=== PATIENT | male | born 1935 | race Caucasian/White ===

== ENCOUNTER 2018-11-01 01:33 | Inpatient (IN) | payer MEDICARE, BC, OTHER ==
[~2018-11-01] VITALS: Ht 180.3 cm; Wt 105.2 kg
[2018-11-01] MEDS ORDERED: VERA240T3 PO (01:47)
[2018-11-01] MEDS ORDERED: ALLO10TA PO (01:47)
[2018-11-01] MEDS ORDERED: LOSA50TA88 PO (01:47)
[2018-11-01] MEDS ORDERED: OMEP10CASR PO (01:47)
[2018-11-01 02:01] LABS: ABG BASE EXCESS -6.1 (-2.0-2.0); ABG HCO3 17.3 MEQ/L (22.0-26.0); ABG O2 SATURATION 97.3 % (95.0-99.0); ABG PARTIAL PRESSURE CO2 28.4 mmHg (35.0-45.0); ABG PARTIAL PRESSURE O2 101.7 mmHg (75.0-100.0); ABG STANDARD HCO3 19.5 MEQ/L (22.0-26.0); ABG TOTAL CO2 18.2 MEQ/L (23.0-31.0); ABG pH (ARTERIAL) 7.403 UNITS (7.350-7.450)
[2018-11-01 02:07] LABS: VENOUS BASE EXCESS -4.8 (-2.0-2.0); VENOUS HCO3 20.3 MEQ/L (23.0-27.0); VENOUS O2 SATURATION 87.3 % (60.0-80.0); VENOUS PARTIAL PRESSURE CO2 37.9 mmHg (38.0-50.0); VENOUS PARTIAL PRESSURE O2 58.3 mmHg (30.0-50.0); VENOUS PH 7.347 UNITS (7.330-7.430); VENOUS STANDARD HCO3 20.3 MEQ/L; VENOUS TOTAL CO2 21.5 MEQ/L (24.0-28.0)
[2018-11-01 02:08] LABS: BASO # 0.1 10^3/uL (0.0-0.2); BASO % 0.5 % (0.0-1.0); EOS # 0.1 10^3/uL (0.0-0.50); EOS % 1.5 % (0.0-3.0); HEMATOCRIT 36.6 % (42.0-52.0); HEMOGLOBIN 12.1 g/dl (13.5-17.5); LYMPH # 1.3 10^3/uL (1.5-4.5); LYMPH % 13.4 % (24.0-44.0); MEAN CORPUSCULAR HGB CONC 33.1 g/dl (32.0-36.5); MEAN CORPUSCULAR VOLUME 105.8 fl (80.0-96.0); MONO # 0.6 10^3/uL (0.0-0.8); MONO % 6.6 % (0.0-5.0); NEUTROPHILS # 7.2 10^3/uL (1.8-7.7); NEUTROPHILS % 77.6 % (36.0-66.0); PLATELET COUNT, AUTOMATED 203 10^3/uL (150-450); RED BLOOD COUNT 3.46 10^6/uL (4.30-6.10); WHITE BLOOD COUNT 9.3 10^3/uL (4.0-10.0)
[2018-11-01 02:35] LABS: ALBUMIN 3.8 GM/DL (3.2-5.2); BILIRUBIN,DIRECT 0.3 MG/DL (0.0-0.2); BILIRUBIN,TOTAL 0.6 MG/DL (0.2-1.0); CALCIUM LEVEL 8.5 MG/DL (8.8-10.2); CK-MB VALUE MASS 4.7 NG/ML (<3.6); CREATININE FOR GFR 1.85 MG/DL (0.70-1.30); GLOMERULAR FILTRATION RATE 37.3 (>35); MB/CK RELATIVE INDEX 1.57 (< OR =4); POTASSIUM SERUM 4.4 MEQ/L (3.5-5.1); THYROID STIMULATING HORMONE 4.6 uIU/ML (0.358-3.740); THYROXINE (T4) 8.3 UG/DL (4.5-12.0); TOTAL PROTEIN 6.4 GM/DL (6.4-8.2); TROPONIN I 0.13 NG/ML (< 0.10)
[2018-11-01] MEDS ORDERED: FUROSEMIDE 40 MG/4 ML VIAL (J1940) IV ONE (03:30)
[2018-11-01 04:50] LABS: CK-MB VALUE MASS 4.9 NG/ML (<3.6); MB/CK RELATIVE INDEX 1.64 (< OR =4); TROPONIN I 0.29 NG/ML (< 0.10)
--- NOTE | 2018-11-01 05:38 | REPVR ---
EXAM: CT Chest Without Contrast EXAM DATE/TIME: 11/01/2018 3:39 AM CLINICAL HISTORY: 83 years old, male; Signs and symptoms; Shortness of breath; Additional info: SOB, liver dysfunction, chf TECHNIQUE: Imaging protocol: Axial computed tomography images of the chest without intravenous contrast. Coronal and sagittal reformatted images were created and reviewed. Radiation optimization: All CT scans at this facility use at least one of these dose optimization techniques: automated exposure control; mA and/or kV adjustment per patient size (includes targeted exams where dose is matched to clinical indication); or iterative reconstruction. COMPARISON: CR PORTABLE CHEST X-RAY 11/01/2018 1:59 AM Study limitations: Evaluation of mediastinal and hilar structures, vasculature as well as for inflammatory change or mass is suboptimal on noncontrast imaging. FINDINGS: HEART AND VASCULATURE: There is mild cardiac enlargement. No pericardial effusion. There is some calcification of the mitral valve. A punctate calcification is noted within the left ventricle which could be related to prior infarct. Aortic valve replacement noted. There is coronary artery disease. There is fusiform aneurysmal dilation of the ascending thoracic aorta up to 46.3 mm in diameter. There is thoracic aortic atherosclerosis. The main pulmonary arteries are dilated up to 3.4 cm at the right pulmonary trunk. This could be correlated for mild pulmonary arterial hypertension. MEDIASTINUM: No mediastinal gas. The visualized thyroid gland is within normal limits. No mediastinal hematoma. Moderate amount of simple appearing fluid noted within the pericardial recesses. Small mediastinal lymph nodes are seen. No lymphadenopathy by size criteria. No periesophageal gas or inflammatory stranding. LUNGS: The lungs are symmetric in expansion. Small bilateral pleural effusions are noted, right slightly greater than left. There is no pneumothorax. Bibasal mildly confluent pulmonary opacities are noted, right slightly greater than left which may be secondary to atelectasis. Mild aspiration or pneumonia cannot be excluded. Clinical correlation is advised. Consider radiographic followup for these findings. There is mild interstitial thickening which could be correlated for interstitial edema or interstitial infiltrate. Subpleural reticular opacities noted anteriorly within the right upper lobe, likely secondary to parenchymal scarring. A few scattered subpleural pulmonary lucencies noted at the right lung base which may be secondary to pulmonary parenchymal fibrotic changes and/or emphysema. No suspicious pulmonary parenchymal mass. No bronchiectasis or peribronchial thickening. UPPER ABDOMEN: Please refer to same day CT abdominal report for complete findings. MSK AND BODY WALL: No thoracic body wall edema. There is mild bilateral gynecomastia. No acute fracture. Mild degenerative changes in the thoracic spine and bony thorax noted. IMPRESSION: Cardiac enlargement, atherosclerosis, pleural effusions and interstitial thickening/edema collectively may be correlated for congestive heart failure. 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 Clinical correlation for mild pulmonary arterial hypertension. Bibasal pulmonary opacities may be secondary to compressive atelectasis, any possibility of aspiration or pneumonia to be correlated clinically. Consider radiographic followup for these findings. Other incidental findings discussed above. Electronically signed by: Rajinder Douglas On 11/01/2018 05:37:43 AM
--- NOTE | 2018-11-01 05:52 | REPVR ---
EXAM: CT Abdomen and Pelvis Without Contrast EXAM DATE/TIME: 11/01/2018 3:39 AM CLINICAL HISTORY: 83 years old, male; Signs and symptoms; Other: Liver dysfunction; Additional info: SOB, liver dysfunction, chf TECHNIQUE: Imaging protocol: Axial computed tomography images of the abdomen and pelvis without contrast. Coronal and sagittal reformatted images were created and reviewed. Radiation optimization: All CT scans at this facility use at least one of these dose optimization techniques: automated exposure control; mA and/or kV adjustment per patient size (includes targeted exams where dose is matched to clinical indication); or iterative reconstruction. COMPARISON: No relevant prior studies available. Study limitations: Evaluation for mass, inflammatory change, including bowel wall/fold thickening, viscera, and vasculature, is suboptimal without contrast. Evaluation through the pelvis is partially nondiagnostic, secondary to streak artifact from left hip hardware. FINDINGS: LUNG BASES: Please refer to same day CT chest report for complete findings. VASCULAR: No abdominal aortic aneurysm or retroperitoneal hematoma. Aortoiliac vessel tortuosity could be correlated for long-standing systemic arterial hypertension. Ectasia of the iliac vessels with the left common iliac artery up to 2.4 cm in diameter. PERITONEAL : No free air. Trace amount of free fluid within the pelvis. GI: No hiatal hernia. The stomach contains some ingested material and gas. The stomach is not sufficiently distended to evaluate wall thickening. There is a gas and fluid containing 3.8 cm proximal duodenal diverticulum. No asymmetric small bowel dilation to suggest obstruction. No focal mesenteric inflammatory stranding. Small nonspecific mesenteric lymph nodes are seen. Scattered fecal material and gas in portions of the colon and rectum. There is diverticulosis but no evidence of acute diverticulitis. The appendix does not appear inflamed. HEPATOBILIARY, PANCREAS, SPLEEN: Sagittal hepatic length is 18.5 cm. Evaluation of hepatic parenchyma is limited without IV contrast. There may be mild periportal edema. Clinical correlation with LFTs. This could be seen with vigorous fluid resuscitation, congestive changes or hepatitis. Hepatic attenuation is consistent with mild fatty infiltration. The gallbladder has been removed. There is partial fatty atrophy of the pancreas. No pancreatic inflammation. Spleen not enlarged. ADRENALS, KIDNEYS, BLADDER, RETROPERITONEAL: Slight enlargement of the adrenal glands may be secondary to adenomatous changes or hyperplasia. Nonspecific bilateral perinephric edema. No renal calculi. No hydronephrosis. Evaluation of the urinary bladder is slightly compromised by streak artifact. The urinary bladder appears slightly thickwalled which could be correlated with urinalysis if there is possibility for infection/cystitis. Moderately enlarged prostate impressing along the base of the bladder. Clinical followup is advised. MUSCULOSKELETAL: Mild nonspecific subcutaneous edema at the umbilicus. Small non-inflamed fat containing umbilical hernia. Mild nonspecific lumbar subcutaneous edema. Degenerative changes of the spine and within the pelvis. Grade one approaching grade 2 anterolisthesis of L5 upon S1. Bilateral L5 spondylolysis. Incompletely evaluated left hip replacement. Sclerosis and degenerative changes along the sacroiliac joints. IMPRESSION: Study limitations secondary to lack of any contrast. Hepatic findings and recommendations discussed above. Nonspecific gastrointestinal findings. Trace amount of free fluid within the pelvis. This is of uncertain cause. Other incidental findings discussed above. Electronically signed by: Rajinder Douglas On 11/01/2018 05:52:04 AM
[2018-11-01] MEDS ORDERED: MAALOX 30 ML SUSP *UDC PO PRN (08:30)
[2018-11-01] MEDS ORDERED: MOM 30ML SUSPENSION UDC PO PRN (08:30)
[2018-11-01] MEDS: DOCUSATE SODIUM 100 MG CAP PO SCH ×2 (10:13→20:31)
[2018-11-01] MEDS: ALLOPURINOL 100 MG TAB PO SCH (10:13)
[2018-11-01] MEDS: OMEPRAZOLE 20 MG CAP PO SCH (10:14)
[2018-11-01] MEDS: VERAPAMIL 40 MG TAB PO SCH ×3 (10:15→20:33)
[2018-11-01] MEDS: HEPARIN SOD (PORCINE) 5000 UNITS/ML VIAL SC SCH ×2 (10:19→20:32)
[2018-11-01] MEDS: FUROSEMIDE 100 MG/10 ML VIAL (J1940) IV SCH ×2 (12:13→20:31)
[2018-11-01 12:56] LABS: ALBUMIN 3.4 GM/DL (3.2-5.2); BILIRUBIN,TOTAL 0.6 MG/DL (0.2-1.0); CALCIUM LEVEL 8.5 MG/DL (8.8-10.2); CK-MB VALUE MASS 4.2 NG/ML (<3.6); CREATININE FOR GFR 1.58 MG/DL (0.70-1.30); GLOMERULAR FILTRATION RATE 44.7 (>35); MB/CK RELATIVE INDEX 1.67 (< OR =4); POTASSIUM SERUM 4.3 MEQ/L (3.5-5.1); TOTAL PROTEIN 6.2 GM/DL (6.4-8.2); TROPONIN I 0.35 NG/ML (< 0.10)
[2018-11-01 13:20] VITALS: BP 143/94
--- NOTE | 2018-11-01 15:26 | HPEPDOC ---
General Date of Admission Nov 01, 2018 at 08:28 Date of Service: Nov 01, 2018 Chief Complaint The patient is a 83-year-old male admitted with a reason for visit of Acute Exacerbation Of Chf. Source: Patient, Family, RN/MD Exam Limitations: No limitations Severity: Moderate Associated Symptoms: Shortness of breath, Weakness History of Present Illness 83 year old male with PMH of Hypertension, CHF, CKD, hiatal hernia, gout, obesity who is visiting here normally lives part of the year in [facility] and the winter in [place] has been up here for the past week. He started having increasing Shortness of breath for the past 4 days which really worsened over the past 2 days along with leg swelling. SOB worsened on exertion. Last night he woke up from sleep wheezing then he could not catch his breath, sitting up did not relieve it, was unable to lay down so came to the Ed via EMS. Ems found him to be hypoxic at home in low 80s. On my interview he complained of SOB worse on exertion, along with orthopnea and PND. He was also wheezing at home which is now better. denied any cough or phlegm, denied any chest pain. He was found to have CHF exacerbation and admitted to the hospitalist service. Home Medications Scheduled Allopurinol (Allopurinol) 100 Mg Tablet, 100 MG PO DAILY, (Reported) Losartan Potassium (Losartan Potassium) 50 Mg Tablet, 50 MG PO DAILY, (Reported) Omeprazole (Omeprazole) 10 Mg Capsule.dr, 20 MG PO DAILY, (Reported) Verapamil Hcl (Verapamil ER) 240 Mg Tablet.er, 240 MG PO DAILY, (Reported) Allergies Coded Allergies: No Known Drug Allergies (Verified Allergy, Mild, 11/01/18) Past Medical History Medical History Hypertension, CHF, CKD, obesity, hiatal hernia, gout Surgical History cholecystectomy, ERCP, Left hip replacement Family History Significant Family History: No pertinent family hx Social History * Smoker: former Smoker Alcohol: occationally Drugs: denies A-FIB/CHADSVASC A-FIB History Current/History of A-Fib/PAF?: No Review of Systems Constitutional: Denies: Chills, Fever, Night Sweats Eyes: Denies: Pain, Vision change ENT: Denies: Head Aches, Ear Pain, Dysphagia Skin: Denies: Rash, Lesions, Breakdown Pulmonary: Reports: Dyspnea Cardiovascular: Reports: Orthopnea, Paroxysmal Noc. Dyspnea, Edema Gastrointestinal: Denies: Nausea, Vomiting, Abdominal Pain, Diarrhea Genitourinary: Denies: Dysuria, Frequency, Incontinence, Retention Hematologic: Denies: Bruising, Bleeding Excessively Musculoskeletal: Reports: Joint Pain; Denies: Neck Pain, Back Pain Neurological: Denies: Weakness, Numbness, Change in speech, Confusion Physical Examination General Exam: Positive: Alert, Cooperative, Mild Distress Eye Exam: Positive: PERRLA, Conjunctiva & lids normal, EOMI; Negative: Sclera icteric ENT Exam: Positive: Atraumatic, Mucous membr. moist/pink, Pharynx Normal Neck Exam: Positive: Supple, JVD; Negative: thyromegaly Chest Exam: Positive: Normal air movement, Rales (few at the bases), Diminished Heart Exam: Positive: Rate Normal, Regular Rhythm, Normal S1, Normal S2, Murmurs (soft systolic murmur); Negative: Rubs Telemetry: Positive: No significant arrhythmia Abdomen Exam: Positive: Normal bowel sounds, Soft; Negative: Tenderness, Hepatospenomegaly Extremity Exam: Positive: Edema Skin Exam: Positive: Nl turgor and temperature; Negative: Breakdown, Lesion Neuro Exam: Positive: Normal Speech, Strength at 5/5 X4 ext, Normal Tone Vital Signs Vital Signs Date Time Temp Pulse Resp B/P (MAP) Pulse Ox O2 Delivery O2 Flow Rate FiO2 11/01/18 11:30 76 119/62 (81) 94 11/01/18 10:30 Nasal Cannula 3.0 11/01/18 09:30 19 11/01/18 01:42 96.7 Laboratory Data Labs 24H Laboratory Tests 2 11/01/18 01:46: Immature Granulocyte % (Auto) 0.4, White Blood Count 9.3, Red Blood Count 3.46L, Hemoglobin 12.1L, Hematocrit 36.6L, Mean Corpuscular Volume 105.8H, Mean Corpuscular Hemoglobin 35.0H, Mean Corpuscular Hemoglobin Concent 33.1, Red Cell Distribution Width 14.6H, Platelet Count 203, Neutrophils (%) (Auto) 77.6H, Lymphocytes (%) (Auto) 13.4L, Monocytes (%) (Auto) 6.6H, Eosinophils (%) (Auto) 1.5, Basophils (%) (Auto) 0.5, Neutrophils # (Auto) 7.2, Lymphocytes # (Auto) 1.3L, Monocytes # (Auto) 0.6, Eosinophils # (Auto) 0.1, Basophils # (Auto) 0.1, Nucleated Red Blood Cells % (auto) 0.0, Blood Gas Bicarbonate Standard 19.5L, Arterial Blood pH 7.403, Arterial Blood Partial Pressure CO2 28.4L, Arterial Blood Partial Pressure O2 101.7H, Arterial Blood Total CO2 18.2L, Arterial Blood HCO3 17.3L, Arterial Blood Base Excess -6.1L, Arterial Blood Oxygen Saturation 97.3, Venous Blood pH 7.347, Venous Blood Partial Pressure CO2 37.9L, Venous Blood Partial Pressure O2 58.3H, Venous Blood Total Carbon Dioxide 21.5L, Venous Blood HCO3 20.3L, Venous Blood Oxygen Saturation 87.3H, Venous Blood Base Excess -4.8L, Anion Gap 11, Glomerular Filtration Rate 37.3, Lactic Acid Level 2.6*H, Calcium Level 8.5L, Aspartate Amino Transf (AST/SGOT) 184H, Alanine Aminotransferase (ALT/SGPT) 226H, Alkaline Phosphatase 161H, Total Bilirubin 0.6, Direct Bilirubin 0.3H, Total Creatine Kinase 299, Creatine Kinase MB 4.7H, Creatine Kinase MB Relative Index 1.57, Troponin I 0.13H, HH-Hlj-W-Type Natriuretic Peptide 5260H, Total Protein 6.4, Albumin 3.8, Albumin/Globulin Ratio 1.46, Thyroid Stimulating Hormone (TSH) 4.600H, Thyroxine (T4) 8.3 11/01/18 04:23: Total Creatine Kinase 299, Creatine Kinase MB 4.9H, Creatine Kinase MB Relative Index 1.64, Troponin I 0.29#H 11/01/18 06:17: Lactic Acid Followup at 4 Hours 2.0 CBC/BMP Laboratory Tests 11/01/18 01:46 Red Blood Count 3.46 L, Mean Corpuscular Volume 105.8 H, Mean Corpuscular Hemoglobin 35.0 H, Mean Corpuscular Hemoglobin Concent 33.1, Red Cell Distribution Width 14.6 H, Neutrophils (%) (Auto) 77.6 H, Lymphocytes (%) (Auto) 13.4 L, Monocytes (%) (Auto) 6.6 H, Eosinophils (%) (Auto) 1.5, Basophils (%) (Auto) 0.5, Neutrophils # (Auto) 7.2, Lymphocytes # (Auto) 1.3 L, Monocytes # (Auto) 0.6, Eosinophils # (Auto) 0.1, Basophils # (Auto) 0.1 Microbiology Microbiology 11/01/18 Blood Culture, Received Pending 11/01/18 Blood Culture, Received Pending Assessment/Plan 83 year old male with PMH of Hypertension, CHF, CKD, hiatal hernia, gout, obesity who is visiting here normally lives part of the year in [facility] and the winter in [place] has been up here for the past week. He started having increasing Shortness of breath for the past 4 days which really worsened over the past 2 days along with leg swelling. SOB worsened on exertion. Last night he woke up from sleep wheezing then he could not catch his breath, sitting up did not relieve it, was unable to lay down so came to the Ed via EMS. Ems found him to be hypoxic at home in low 80s. On my interview he complained of SOB worse on exertion, along with orthopnea and PND. He was also wheezing at home which is now better. denied any cough or phlegm, denied any chest pain. He was found to have CHF exacerbation and admitted to the hospitalist service. Acute respiratory failure with hypoxia due to CHF exacerbation improving after diuresis. CHF exacerbation echo. patient has recently seen a refrigerator assembler in [place] referred to by his PMD and had an echo done but has not heard anything back from them. will try to get records. will start on IV lasix 80 mg q 8 fluid restriction, I/O , daily weight. Patient was recently seen also by a wax coating machine tender about a week ago and then his Bp medication valsartan/HCTZ was changed to losartan only this may have caused the fluid retention and precipitation of CHF. Congestive hepatopathy with fatty liver congestion is due to CHF. improving with diuresis. CKD stage 3 with mild KRISTOFER possibly cardiorenal now worse due to CHF exacerbation creatinine improving with diuresis. he was recently told about a week ago that he had CKD CT abdomen an pelvis does not show any obstructive uropathy Prostate enlargement in CT scan will do bladder scan for post void residual. Hypertension Bp controlled at present will hold ACEI and ARBs will continue verapamil with hold parameters will continue with lasix. Gout continue allopurinol Plan / VTE VTE Prophylaxis Ordered?: Yes FERNY TURNER MD Nov 01, 2018 12:05
[2018-11-01] MEDS ORDERED: SLF 3 ML SYR IV PRN (15:45)
[2018-11-01 16:00] VITALS: BP 136/66
--- NOTE | 2018-11-01 18:55 | ECGEPIP ---
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
[2018-11-01 20:00] VITALS: BP 141/69
[2018-11-01] MEDS: SLF 3 ML SYR IV SCH (22:26)
[2018-11-01 23:59] VITALS: BP 122/62
[2018-11-02] MEDS: FUROSEMIDE 100 MG/10 ML VIAL (J1940) IV SCH (03:39)
[2018-11-02 04:00] VITALS: BP 101/62
[2018-11-02] MEDS: SLF 3 ML SYR IV SCH ×3 (06:00→19:59)
[2018-11-02 07:16] LABS: BASO % 0.5 % (0.0-1.0); EOS # 0.2 10^3/uL (0.0-0.50); EOS % 2.9 % (0.0-3.0); HEMATOCRIT 36.8 % (42.0-52.0); HEMOGLOBIN 12.3 g/dl (13.5-17.5); LYMPH # 2.1 10^3/uL (1.5-4.5); LYMPH % 26.9 % (24.0-44.0); MEAN CORPUSCULAR HEMOGLOBIN 34.8 pg (27.0-33.0); MEAN CORPUSCULAR HGB CONC 33.4 g/dl (32.0-36.5); MEAN CORPUSCULAR VOLUME 104.2 fl (80.0-96.0); MONO # 0.6 10^3/uL (0.0-0.8); MONO % 7.6 % (0.0-5.0); NEUTROPHILS # 4.7 10^3/uL (1.8-7.7); NEUTROPHILS % 61.8 % (36.0-66.0); PLATELET COUNT, AUTOMATED 169 10^3/uL (150-450); RED BLOOD COUNT 3.53 10^6/uL (4.30-6.10); WHITE BLOOD COUNT 7.6 10^3/uL (4.0-10.0)
[2018-11-02 07:35] LABS: CALCIUM LEVEL 8.9 MG/DL (8.8-10.2); CREATININE FOR GFR 1.8 MG/DL (0.70-1.30); GLOMERULAR FILTRATION RATE 38.5 (>35); POTASSIUM SERUM 3.7 MEQ/L (3.5-5.1)
--- NOTE | 2018-11-02 07:38 | REP ---
CHEST, PORTABLE: AP portable view of the chest is performed. There is mild cardiomegaly. There appears to be mild vascular congestion and interstitial edema. There is calcification of the thoracic aorta. The mediastinal silhouette is otherwise unremarkable. There are degenerative changes of the spine. IMPRESSION: Mild cardiomegaly. Mild vascular congestion with probably mild interstitial edema, although underlying interstitial fibrosis cannot be excluded. Electronically Signed by Jamarcus Gonzalez MD 11/02/2018 08:34 A
[2018-11-02 07:48] VITALS: BP 121/77
--- NOTE | 2018-11-02 08:39 | IPNPDOC ---
Subjective Date Seen The patient was seen on 11/02/18. Subjective Chief Complaint/HPI Feeling much better today. Denied any SOB at rest. Has not yet gone for a walk out side the room. Has been able to lay down almost flat last night. No wheezing. No chest pain. No nausea or or vomiting. No difficulty in voiding. Objective Physical Examination General Exam: Positive: Alert, Cooperative, Mild Distress Eye Exam: Positive: PERRLA, Conjunctiva & lids normal, EOMI; Negative: Sclera icteric ENT Exam: Positive: Atraumatic, Mucous membr. moist/pink, Pharynx Normal Neck Exam: Positive: Supple, JVD; Negative: thyromegaly Chest Exam: Positive: Normal air movement, Rales (few at the bases), Diminished Heart Exam: Positive: Rate Normal, Regular Rhythm, Normal S1, Normal S2, Murmurs (soft systolic murmur); Negative: Rubs Telemetry: Positive: No significant arrhythmia Abdomen Exam: Positive: Normal bowel sounds, Soft; Negative: Tenderness, Hepatospenomegaly Extremity Exam: Positive: Edema Skin Exam: Positive: Nl turgor and temperature; Negative: Breakdown, Lesion Neuro Exam: Positive: Normal Speech, Strength at 5/5 X4 ext, Normal Tone Assessment /Plan Assessment 83 year old male with PMH of Hypertension, CHF, CKD, hiatal hernia, gout, obesity who is visiting here normally lives part of the year in [facility] and the winter in [place] has been up here for the past week. He started having increasing Shortness of breath for the past 4 days which really worsened over the past 2 days along with leg swelling. SOB worsened on exertion. Last night he woke up from sleep wheezing then he could not catch his breath, sitting up did not relieve it, was unable to lay down so came to the Ed via EMS. Ems found him to be hypoxic at home in low 80s. On my interview he complained of SOB worse on exertion, along with orthopnea and PND. He was also wheezing at home which is now better. denied any cough or phlegm, denied any chest pain. He was found to have CHF exacerbation and admitted to the hospitalist service. Acute respiratory failure with hypoxia due to CHF exacerbation improved after diuresis. Now off oxygen. CHF exacerbation echo. patient has recently seen a home health provider in [place] referred to by his PMD and had an echo done but has not heard anything back from them. will try to get records. will reduce lasix dosage today. I/o negative > 7L in last 24 hours. WIll hold lasix today. fluid restriction, I/O , daily weight. Patient was recently seen also by a auction block clerk about a week ago and then his Bp medication valsartan/HCTZ was changed to losartan only this may have caused the fluid retention and precipitation of CHF. Congestive hepatopathy with fatty liver congestion is due to CHF. improving with diuresis. However will get hepatitis panel to rule out any other infection. CKD stage 3 with mild KRISTOFER possibly cardiorenal now worse due to CHF exacerbation he was recently told about a week ago that he had CKD CT abdomen an pelvis does not show any obstructive uropathy Prostate enlargement in CT scan will do bladder scan for post void residual. Hypertension Bp controlled at present will hold ACEI and ARBs will continue verapamil with hold parameters will continue with lasix. Gout continue allopurinol Plan/VTE VTE Prophylaxis Ordered?: Yes VS, I&O, 24H, [facility] Vital Signs/I&O Vital Signs Date Time Temp Pulse Resp B/P (MAP) Pulse Ox O2 Delivery O2 Flow Rate FiO2 11/02/18 07:48 97.2 89 18 121/77 (92) 95 11/01/18 13:48 2.0 11/01/18 13:23 Nasal Cannula I&O- Last 24 Hours up to 6 AM 11/02/18 06:00 Intake Total 390 ml Output Total 7410 ml Balance -7020 ml Laboratory Data 24H LABS Laboratory Tests 2 11/01/18 12:11: Anion Gap 6L, Glomerular Filtration Rate 44.7, Blood Urea Nitrogen 37H, Creatinine 1.58H, Sodium Level 144, Potassium Level 4.3, Chloride Level 113H, Carbon Dioxide Level 25, Calcium Level 8.5L, Aspartate Amino Transf (AST/SGOT) 109H, Alanine Aminotransferase (ALT/SGPT) 198H, Total Creatine Kinase 251, Alkaline Phosphatase 143H, Total Bilirubin 0.6, Total Protein 6.2L, Albumin 3.4, Creatine Kinase MB 4.2H, Creatine Kinase MB Relative Index 1.67, Troponin I 0.35#H, Albumin/Globulin Ratio 1.21 11/02/18 06:57: Anion Gap 7L, Glomerular Filtration Rate 38.5, Blood Urea Nitrogen 36H, Creatinine 1.80H, Sodium Level 142, Potassium Level 3.7, Chloride Level 104, Carbon Dioxide Level 31, Calcium Level 8.9, Immature Granulocyte % (Auto) 0.3, White Blood Count 7.6, Red Blood Count 3.53L, Hemoglobin 12.3L, Hematocrit 36.8L, Mean Corpuscular Volume 104.2H, Mean Corpuscular Hemoglobin 34.8H, Mean Corpuscular Hemoglobin Concent 33.4, Red Cell Distribution Width 14.5, Platelet Count 169, Neutrophils (%) (Auto) 61.8, Lymphocytes (%) (Auto) 26.9, Monocytes (%) (Auto) 7.6H, Eosinophils (%) (Auto) 2.9, Basophils (%) (Auto) 0.5, Neutrophils # (Auto) 4.7, Lymphocytes # (Auto) 2.1, Monocytes # (Auto) 0.6, Eosinophils # (Auto) 0.2, Basophils # (Auto) 0.0, Nucleated Red Blood Cells % (auto) 0.0 11/02/18 08:15: CBC/BMP Laboratory Tests 11/01/18 12:11 Calcium Level 8.5 L, Aspartate Amino Transf (AST/SGOT) 109 H, Alanine Aminotransferase (ALT/SGPT) 198 H, Total Creatine Kinase 251, Alkaline Phosphatase 143 H, Total Bilirubin 0.6, Total Protein 6.2 L, Albumin 3.4 11/02/18 06:57 Calcium Level 8.9, Red Blood Count 3.53 L, Mean Corpuscular Volume 104.2 H, Mean Corpuscular Hemoglobin 34.8 H, Mean Corpuscular Hemoglobin Concent 33.4, Red Cell Distribution Width 14.5, Neutrophils (%) (Auto) 61.8, Lymphocytes (%) (Auto) 26.9, Monocytes (%) (Auto) 7.6 H, Eosinophils (%) (Auto) 2.9, Basophils (%) (Auto) 0.5, Neutrophils # (Auto) 4.7, Lymphocytes # (Auto) 2.1, Monocytes # (Auto) 0.6, Eosinophils # (Auto) 0.2, Basophils # (Auto) 0.0 Microbiology Microbiology 11/01/18 Blood Culture - Preliminary, Resulted No growth after 24 hours . All specim... 11/01/18 Blood Culture - Preliminary, Resulted No growth after 24 hours . All specim... FERNY TURNER MD Nov 02, 2018 08:39
[2018-11-02] MEDS: ALLOPURINOL 100 MG TAB PO SCH (08:58)
[2018-11-02] MEDS: VERAPAMIL 40 MG TAB PO SCH ×3 (08:58→19:56)
[2018-11-02] MEDS: OMEPRAZOLE 20 MG CAP PO SCH (08:58)
[2018-11-02] MEDS: DOCUSATE SODIUM 100 MG CAP PO SCH ×2 (08:58→19:59)
[2018-11-02] MEDS: HEPARIN SOD (PORCINE) 5000 UNITS/ML VIAL SC SCH ×2 (08:59→19:59)
[2018-11-02] MEDS ORDERED: FUROSEMIDE 100 MG/10 ML VIAL (J1940) IV SCH (09:00)
[2018-11-02 09:22] LABS: ALBUMIN 4.1 GM/DL (3.2-5.2); ALT/SGPT 184 U/L (12-78); BILIRUBIN,DIRECT 0.4 MG/DL (0.0-0.2); BILIRUBIN,TOTAL 1.4 MG/DL (0.2-1.0); HEPATITIS B SURFACE ANTIGEN NEGATIVE (NEGATIVE); TOTAL PROTEIN 7.2 GM/DL (6.4-8.2)
[2018-11-02 09:44] LABS: HEPATITIS B CORE ANTIBODY IGM NEGATIVE (NEGATIVE); HEPATITIS C VIRUS ABY INDEX < 0.0 INDEX (<0.8)
[2018-11-02 09:46] LABS: HEPATITIS A ANTIBODY IGM NEGATIVE (NEGATIVE)
[2018-11-02 11:57] VITALS: BP 132/63
[2018-11-02 15:59] VITALS: BP 127/74
[2018-11-02 20:00] VITALS: BP 129/79
--- NOTE | 2018-11-02 20:57 | ECHO ---
DATE OF PROCEDURE: 11/02/2018 REFERRING PHYSICIAN: Dr. Ame Jasso INDICATION: Congestive heart failure. Height 180 cm, weight 114 kg. DIMENSIONS: IVS: 1.1 LV: 6.5 LVPW: 1.2 LA: 5.2 Aorta: 3.5 IVC: 2.7 Left atrial volume index: 42 Mitral E wave velocity: 112 A wave: 56 E prime septal: 7.4 E prime lateral: 9.9 FINDINGS: The study is of acceptable technical quality. The patient is in sinus rhythm with frequent ectopy. Left ventricle is moderately dilated and globally severely hypokinetic. I estimate left ventricular ejection fraction (LVEF) around 25-30%. Right ventricle was poorly visualized but appears at least mildly dilated. Left atrium is severely enlarged (left atrial volume index was 42 mL per meter square). Right atrium also appears enlarged. Aortic valve is heavily calcified. It is tricuspid and there is severe restriction of cusp mobility. By 2D imaging, I assume severe aortic stenosis. There are degenerative abnormalities of mitral valve with prominent thickening of mitral leaflets and mitral annular calcifications. No prolapse is seen. Tricuspid and pulmonic valves were poorly visualized but grossly appear normal. No pericardial effusion is noted. Inferior vena cava is markedly dilated, and there is minimal collapse with respiration indicative of very high central venous pressure. Aortic root is normal. Aortic arch and abdominal aorta were not seen. Doppler interrogation of aortic valve reveals mild insufficiency and probably severe stenosis, mean gradient across the valve is only 18 mmHg with peak gradient 30, but calculated aortic valve area is approximately 1.0 cm squared. There is likely severe mitral insufficiency, by PISA technique. Calculated ERO 0.5 cm squared. There is moderate tricuspid insufficiency. Calculated pulmonary artery pressure is around 70 mmHg corresponding to severe pulmonary hypertension. Evaluation of diastolic function reveals at least grade 2 diastolic dysfunction. CONCLUSIONS: 1. Study is of acceptable technical quality. 2. Dilated globally hypokinetic left ventricle with estimated LVEF around 25-30%. At least grade 2 diastolic dysfunction. 3. Heavily calcified aortic valve with mild insufficiency and probably severe aortic stenosis in spite of low gradient (mean 18, peak 30 mmHg). 4. 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 5. Very high central venous pressure and at least moderately severe or severe pulmonary hypertension. COMMENT: Subacute bacterial endocarditis (SBE) prophylaxis is not recommended. Provided the patient is a candidate, then he should be considered for right and left cardiac catheterization with view of potential interventions on aortic and possibly even mitral valves.
[2018-11-02 22:00] VITALS: BP 139/90
[2018-11-03] MEDS: SLF 3 ML SYR IV SCH ×2 (05:42→08:57)
[2018-11-03 06:00] VITALS: BP 103/65
[2018-11-03 06:50] LABS: BASO # 0.1 10^3/uL (0.0-0.2); BASO % 0.6 % (0.0-1.0); EOS # 0.2 10^3/uL (0.0-0.50); EOS % 2.7 % (0.0-3.0); HEMATOCRIT 36.2 % (42.0-52.0); HEMOGLOBIN 12.3 g/dl (13.5-17.5); LYMPH # 2.1 10^3/uL (1.5-4.5); MEAN CORPUSCULAR HEMOGLOBIN 34.8 pg (27.0-33.0); MEAN CORPUSCULAR VOLUME 102.5 fl (80.0-96.0); MONO # 0.7 10^3/uL (0.0-0.8); MONO % 8.5 % (0.0-5.0); NEUTROPHILS # 5.3 10^3/uL (1.8-7.7); NEUTROPHILS % 62.8 % (36.0-66.0); PLATELET COUNT, AUTOMATED 183 10^3/uL (150-450); RED BLOOD COUNT 3.53 10^6/uL (4.30-6.10); WHITE BLOOD COUNT 8.4 10^3/uL (4.0-10.0)
[2018-11-03 07:17] LABS: CREATININE FOR GFR 1.53 MG/DL (0.70-1.30); GLOMERULAR FILTRATION RATE 46.4 (>35); POTASSIUM SERUM 3.9 MEQ/L (3.5-5.1)
[2018-11-03] MEDS: VERAPAMIL 40 MG TAB PO SCH (08:47)
[2018-11-03] MEDS: HEPARIN SOD (PORCINE) 5000 UNITS/ML VIAL SC SCH (08:56)
[2018-11-03] MEDS: DOCUSATE SODIUM 100 MG CAP PO SCH (08:56)
[2018-11-03] MEDS: OMEPRAZOLE 20 MG CAP PO SCH (08:56)
[2018-11-03] MEDS: ALLOPURINOL 100 MG TAB PO SCH (08:56)
[2018-11-03] MEDS ORDERED: METOPROLOL TART 25 MG TABLET PO SCH (12:00)
[2018-11-03] MEDS ORDERED: VERA120C PO (12:13)
[2018-11-03] MEDS ORDERED: FURO40TA2 PO (12:13)
[2018-11-03 13:29] LABS: CK-MB VALUE MASS 1.7 NG/ML (<3.6); MB/CK RELATIVE INDEX 1.06 (< OR =4); TROPONIN I 0.12 NG/ML (< 0.10)
[2018-11-03 13:47] VITALS: BP 142/60
[2018-11-03 14:00] VITALS: BP 142/60
[2018-11-03] MEDS ORDERED: METO25TA4 PO (14:09)
--- NOTE | 2018-11-03 16:22 | DS.PDOC ---
Discharge Summary General Date of Admission Nov 01, 2018 at 08:28 Date of Discharge 11/03/2018 Discharge Summary PROCEDURES PERFORMED DURING STAY: [None]. ADMITTING DIAGNOSES / DISCHARGE DIAGNOSES: Acute respiratory failure with hypoxia - likely 2/2 systolic and diastolic congestive heart failure New onset atrial fibrillation Elevated liver enzymes - possibly 2/2 congestive heart failure CKD3 Prostate enlargement in CT scan Hypertension Gout DVT prophylaxis COMPLICATIONS/CHIEF COMPLAINT: Shortness of breath HISTORY OF PRESENT ILLNESS: Patient is an 83 year old male with a PMHx of HTN, Diastolic / Systolic CHF, CKD3, Hiatal hernia, Gout and Obesity who presented to the ER with shortness of breath and weakness. Emergency room, patient was found to have signs of fluid overload. Imaging via chest x-ray and CT chest were consistent with cardiac enlargement atherosclerosis pleural effusions and interstitial thickening/edema, actively may be correlated for congestive heart failure. 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 Patient was admitted to hospitalist service for further evaluation and treatment. HOSPITAL COURSE: Acute respiratory failure with hypoxia - likely 2/2 systolic and diastolic congestive heart failure - Clinically improving, no complaints of SOB, CP, palpitations - Physical without any signs of fluid overload - Echocardiogram did reveal ejection fraction of 25-30%, G2DD, severe aortic stenosis, aortic insufficiency suspected to be from ischemia - Patient had extensive diuresis - Discussed case with cardiology at [facility]; it has been except that on transfer for cardiac catheterization and possible aortic valve replacement New onset atrial fibrillation - EKG reviewed does reveals atrial fibrillation - As an outpatient patient was on verapamil; this has been transitioned to Metoprolol - Currently not on full anticoagulation - Will hold off on full anticoagulation given transfer for cardiac catheterization / possible AV replacement procedure - Risks and benefits have been discussed with the patient; patient has verbalized understanding Elevated liver enzymes - possibly 2/2 congestive heart failure - Liver enzyme improving - Hepatitis panel negative CKD3 - No baseline Cr available for comparison Prostate enlargement in CT scan - Currently does not experience any urinary retention symptoms Hypertension - Blood pressure appears to be well controlled currently; does appear to be on the lower side of normal - Will DC Verapamil and start Metoprolol tartrate 25mg PO q6h - Has been discontinued from JUDI/ARB /HCTZ given intolerance (low blood pressure) Gout - c/w allopurinol DVT prophylaxis - c/w Heparin DISCHARGE MEDICATIONS: Please see below. ALLERGIES: Please see below. PHYSICAL EXAMINATION ON DISCHARGE: Vitals (See below) General: Lying in bed, no acute distress, comfortable, AAOx3 HEENT: NC, AT CVS: +S1S2 Lungs: Fair air entry bilaterally without evidence of rhonchi, rales or wheezing Abdomen: Soft, ND, NT Extremities: There is currently no appreciable edema of his lower extremities, - Calf tenderness LABORATORY DATA: Please see below. IMAGING: - CXR 11/01: Mild cardiomegaly. Mild vascular congestion with probably mild interstitial edema, although underlying interstitial fibrosis cannot be excluded. - CT chest 11/01: Cardiac enlargement, atherosclerosis, pleural effusions and interstitial thickening/edema collectively may be correlated for congestive heart failure. 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 Clinical correlation for mild pulmonary arterial hypertension. Bibasal pulmonary opacities may be secondary to compressive atelectasis, any possibility of aspiration or pneumonia to be correlated clinically. Consider radiographic followup for these findings. Other incidental findings discussed above. - CT abdomen / pelvis 11/01: Study limitations secondary to lack of any contrast. Hepatic findings and recommendations discussed above. Nonspecific gastrointestinal findings. Trace amount of free fluid within the pelvis. This is of uncertain cause. Other incidental findings discussed above. PROGNOSIS: Fair ACTIVITY: [As tolerated]. DIET: Fluid restriction of 1800 cc DISCHARGE PLAN: Transfer to [facility] for cardiac intervention Remain compliant with treatment plan and medications Return to the ER if you experience any problems DISPOSITION: Transfer to [facility] DISCHARGE CONDITION: [Stable]. TIME SPENT ON DISCHARGE: 45 minutes Vital Signs/I&Os Vital Signs Date Time Temp Pulse Resp B/P (MAP) Pulse Ox O2 Delivery O2 Flow Rate FiO2 11/03/18 14:00 96.6 80 20 142/60 (87) 100 11/01/18 13:48 2.0 11/01/18 13:23 Nasal Cannula I&O- Last 24 Hours up to 6 AM 11/03/18 06:00 Intake Total 1080 ml Output Total 2375 ml Balance -1295 ml Laboratory Data Labs 24H Laboratory Tests 2 11/03/18 06:01: Immature Granulocyte % (Auto) 0.4, White Blood Count 8.4, Red Blood Count 3.53L, Hemoglobin 12.3L, Hematocrit 36.2L, Mean Corpuscular Volume 102.5H, Mean Corpuscular Hemoglobin 34.8H, Mean Corpuscular Hemoglobin Concent 34.0, Red Cell Distribution Width 14.2, Platelet Count 183, Neutrophils (%) (Auto) 62.8, Lymphocytes (%) (Auto) 25.0, Monocytes (%) (Auto) 8.5H, Eosinophils (%) (Auto) 2.7, Basophils (%) (Auto) 0.6, Neutrophils # (Auto) 5.3, Lymphocytes # (Auto) 2.1, Monocytes # (Auto) 0.7, Eosinophils # (Auto) 0.2, Basophils # (Auto) 0.1, Nucleated Red Blood Cells % (auto) 0.0, Anion Gap 5L, Glomerular Filtration Rate 46.4, Blood Urea Nitrogen 36H, Creatinine 1.53H, Sodium Level 143, Potassium Level 3.9, Chloride Level 105, Carbon Dioxide Level 33H, Calcium Level 9.0, Total Creatine Kinase 161, Magnesium Level 2.0, Creatine Kinase MB 1.7, Creatine Kinase MB Relative Index 1.06, Troponin I 0.12#H CBC/BMP Laboratory Tests 11/03/18 06:01 Red Blood Count 3.53 L, Mean Corpuscular Volume 102.5 H, Mean Corpuscular Hemoglobin 34.8 H, Mean Corpuscular Hemoglobin Concent 34.0, Red Cell Distribution Width 14.2, Neutrophils (%) (Auto) 62.8, Lymphocytes (%) (Auto) 25.0, Monocytes (%) (Auto) 8.5 H, Eosinophils (%) (Auto) 2.7, Basophils (%) (Auto) 0.6, Neutrophils # (Auto) 5.3, Lymphocytes # (Auto) 2.1, Monocytes # (Auto) 0.7, Eosinophils # (Auto) 0.2, Basophils # (Auto) 0.1, Calcium Level 9.0, Total Creatine Kinase 161 Microbiology Microbiology 11/01/18 Blood Culture - Preliminary, Resulted No Growth after 48 hours. All Specime... 11/01/18 Blood Culture - Preliminary, Resulted No Growth after 48 hours. All Specime... Discharge Medications Scheduled Allopurinol (Allopurinol) 100 Mg Tablet, 100 MG PO DAILY, (Reported) Furosemide (Furosemide) 40 Mg Tablet, 1 TAB PO DAILY Metoprolol Tartrate (Metoprolol Tartrate) 25 Mg Tablet, 1 TAB PO Q6H Omeprazole (Omeprazole) 10 Mg Capsule.dr, 20 MG PO DAILY, (Reported) Allergies Coded Allergies: No Known Drug Allergies (Verified Allergy, Mild, 11/01/18) JESSICA ASHTON MD Nov 03, 2018 16:22
--- NOTE | 2018-11-03 17:36 | ECGEPIP ---
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
== END 2018-11-03 16:46 | disposition short-term general hospital (02) | DRG 291 ==
LOC: M ED 01:33 → M ED INP 08:28 → M PCU 13:18 → M MSPAV 11-02 20:52
PROVIDERS: ADMIT Internal Medicine Nephrology; ATTEND Internal Medicine
DX: I13.0 Hypertensive heart and chronic kidney disease with heart failure and stage 1 through stage 4 chronic kidney disease, or unspecified chronic kidney disease (principal); J96.01 Acute respiratory failure with hypoxia; I50.43 Acute on chronic combined systolic (congestive) and diastolic (congestive) heart failure; N17.9 Acute kidney failure, unspecified; N18.3 Chronic kidney disease, stage 3 (moderate); I48.91 Unspecified atrial fibrillation; K76.1 Chronic passive congestion of liver; K44.9 Diaphragmatic hernia without obstruction or gangrene; K76.0 Fatty (change of) liver, not elsewhere classified; M10.9 Gout, unspecified; E66.9 Obesity, unspecified; Z79.899 Other long term (current) drug therapy; Z96.642 Presence of left artificial hip joint; Z90.49 Acquired absence of other specified parts of digestive tract; Z87.891 Personal history of nicotine dependence

== ENCOUNTER → 2020-11-06 | Outpatient (REF) | payer MEDICARE, BC, OTHER ==
[~2020-11-06] MED LIST: ALLO10TA PO; FURO40TA2 PO; LOSA50TA88 PO; METO25TA4 PO; OMEP10CASR PO; VERA120C PO; VERA240T3 PO
[2020-11-06 18:36] LABS: BASO % 0.3 % (0.0-1.0); EOS # 0.3 10^3/uL (0.0-0.5); EOS % 4.3 % (0.0-3.0); HEMATOCRIT 32.6 % (42.0-52.0); HEMOGLOBIN 10.6 g/dl (13.5-17.5); LYMPH # 1.4 10^3/uL (1.5-5.0); LYMPH % 19.6 % (24.0-44.0); MEAN CORPUSCULAR HEMOGLOBIN 33.9 pg (27.0-33.0); MEAN CORPUSCULAR HGB CONC 32.5 g/dl (32.0-36.5); MEAN CORPUSCULAR VOLUME 104.2 fl (80.0-96.0); MONO # 0.8 10^3/uL (0.0-0.8); MONO % 10.9 % (2.0-8.0); NEUTROPHILS # 4.7 10^3/uL (1.5-8.5); NEUTROPHILS % 64.6 % (36.0-66.0); PLATELET COUNT, AUTOMATED 180 10^3/uL (150-450); RED BLOOD COUNT 3.13 10^6/uL (4.30-6.10); WHITE BLOOD COUNT 7.3 10^3/uL (4.0-10.0)
== END ==
LOC: M LABDRWAD 17:33
PROVIDERS: ATTEND Internal Medicine Medical Oncology
DX: N18.30 Chronic kidney disease, stage 3 unspecified (principal); D63.1 Anemia in chronic kidney disease